=== PATIENT | female | born 1965 | race Caucasian/White ===

== ENCOUNTER 2016-07-02 08:28 | Inpatient (IN) | payer OTHER ==
--- NOTE | 2016-07-01 08:54 | HP ---
DATE OF CLINIC: 06/24/2016 BIBIANA OLVERA : 1965 PLANNED PROCEDURE: Left Total Knee Arthroplasty DATE OF SURGERY: July 02, 2016 SURGEON: Fam Weber M.D. HISTORY OF PRESENT ILLNESS Bibiana Olvera is a 51 year old female. * Medication list reviewed with patient allergy list reviewed with patient. * Tried NSAIDS Ibuprofen-prn * Tried Injections Aspiration/Injection 03/20/15 * Has not tried Physical Therapy 51-year-old female with known left knee osteoarthritis interested in pursuing TKA. When we last talked in October of 2015 I told her that she needed to get documentation of active substance abuse treatment as she is a previous methamphetamine user including as recently as in the last year. She also needed to have clearance from her PCP as well as evidence of attempts on smoking cessation. She returns today to discuss her progress. She states that she has made contact with substance abuse treatment counselors, but has not actually started any treatment yet. She has been working with her PCP, but does not have that clearance yet and she has cut back to smoking just a few cigarettes a day and is interested in trying the patch to get completely off of them. Her pain continues to be a 3-5/10, worse with activities, no real changes. No changes to her past medical or surgical history. After discussion and review of treatment options, both operative and non-operative, and clearances from her PCP, she has elected to proceed with left TKA and presents today preoperatively. CURRENT MEDICATION * Flexeril 10mg Tablet as directed 0 days, 0 refills * Gabapentin 300 MG Capsule as directed 0 days, 0 refills * Ibuprofen 800 MG Tablet as needed 0 days, 0 refills * Omeprazole 20 MG Capsule Delayed Release 1 once a day 0 days, 0 refills PAST MEDICAL/SURGICAL HISTORY Reported: Medical: Stomach problems, a fracture, Reported numbness, Reported tingling, cardiac history, history of Arthritis, Gout, Hypertension, Stroke, Osteoporosis, Vertigo, and Asthma. Surgical / Procedural: Prior surgery Ankle ORIF 09/01/13 Left Knee ACL reconstruction 02/06/14. SOCIAL HISTORY Social history unchanged. Behavioral: Current smoker - smokes 1/2 pack per day for the last 30 years having stopped a couple of times and smoking status: Current everyday smoker. Work: Occupation Customer Service. ALLERGIES * Codeine Reaction: Skin Rashes/Hives * Latex FAMILY HISTORY Father ill Cancer Mother ill Diabetes, blood cots, hypertension, depression, REVIEW OF SYSTEMS No recent constitutional symptoms to include fevers and chills. No recent cardiovascular symptoms to include chest pain or palpitations. No recent respiratory symptoms to include shortness of breath or recent infections. She specifically denies using any illegal substances anytime since the last time we talked. PHYSICAL FINDINGS * Vitals taken 06/24/2016 01:38 pm BP-Sitting R 141/84 mmHg BP Cuff Size Regular Pulse Rate-Sitting 92 bpm Pulse Rhythm Regular Temp-Oral 98.2 F Height 63 in Weight 170 lbs Body Mass Index 30.1 kg/m2 Body Surface Area 1.80 m2 Pain Level 3 Ears, Nose, Throat: * ENT: normal. Lungs: * Clear to auscultation. Cardiovascular: Heart Rate and Rhythm: * Normal. Abdomen: * Normal. Neurological: Motor: * Dominant Hand = Right Hand. Patient is a well-developed, well-nourished female in no acute distress. She is awake, alert and conversant throughout the encounter. She is somewhat agitated and almost has sort of flight of ideas in discussion to her speech. CARDIOVASCULAR: Intact peripheral pulses on bilateral lower extremities. No significant edema on inspection of bilateral lower extremities. NEUROLOGIC: Patient had intact coordinated composite motion of the bilateral lower extremities and sensation intact to light touch in all distributions of bilateral lower extremities. PSYCHIATRIC: Patient was oriented to person, place and time and displayed appropriate mood and affect during the encounter. SKIN: Exam of the skin on bilateral lower extremities showed no significant scars, lesions, rashes or masses. FOCUSED MUSCULOSKELETAL EXAM: No real changes, she's still got limited motion and pain and significant deformity in varus. She's got valgus pseudolaxity with a firm endpoint, stable to varus stress, grossly loose Karely's and negative posterior drawer. Her ROM is about 0-90 degrees. IMAGING Review of radiographs shows tunnel from previous ACL reconstruction, significant sclerotic appearance of the medial femoral condyle, midline patella, flattened and pitted medial femoral condyle, complete obliteration of the medial joint space, marginal osteophytosis and some varus malalignment with what appears to be a slight medial subluxation of the tibia relative to the femur. ASSESSMENT 51-year-old female with known left knee osteoarthritis with no real progress on the social and preoperative clearance front. PREVIOUS TESTS * Test: PROTHROMBIN TIME Report Date: 06/04/2016 PROTIME 10.2 s INR 0.97 * Test: PARTIAL THROMBOPLASTIN TIME Report Date: 06/04/2016 APTT 27.9 s * Test: CBC NO DIFF Report Date: 06/04/2016 WBC 6.7 10*3/mL MCV 97.5 fL RBC 4.77 10*6/uL MCH 32.5 pg High MCHC 33.3 g/dL RDW 12.1 % PLATELET COUNT 309 10*3/mL HCT 46.5 % HGB 15.5 g/L * Test: COMPREHENSIVE METABOLIC PANEL Report Date: 06/04/2016 ALT/SGPT 36 U/L ALBUMIN 4.0 g/dL ALB/GLOB RATIO 1.3 BUN 24 mg/dL BUN/CREAT RATIO 30 High CALCIUM 9.6 mg/dL GLUCOSE 80 mg/dL CREATININE 0.8 mg/dL SODIUM 136 meq/L POTASSIUM 4.7 meq/L CHLORIDE 99 meq/L CARBON DIOXIDE 32 meq/L High ANION GAP 10 meq/L TOT PROTEIN 7.2 g/dL GLOBULIN 3.2 g/dL BILI,TOTAL 0.4 mg/dL AST/SGOT 30 U/L ALK PHOSPHATASE 48 U/L GFR 76 * Test: MRSA SCREEN Report Date: 06/05/2016 MRSA SCREEN NEGATIVE * Test: MSSA SCREEN Report Date: 06/05/2016 MSSA SCREEN POSITIVE FOR STAPHYLOCOCCUS AUREUS Abnormal THERAPY * Patient not eligible for fall risk assessment. PLAN * Unilateral post-traumatic osteoarthritis, left knee Physical Therapy: [facility] Instructions: Left total knee rehab DOS: 07/02/16 Schedule the [facility] the [facility] 10 MG T12A, Take 1 tablet every 12 hours for baseline pain control, 10 days, 0 refills OxyCODONE HCl 5 MG TABS, Take 1-2 tablets by mouth every 4 hours as needed for severe breakthrough pain, 14 days, 0 refills TraMADol HCl 50 MG TABS, Take 1-2 tablets every 6 hours as needed for moderate breakthrough pain, 14 days, 0 refills * Total knee arthroplasty -Left CARE TEAM Rebeca Menon PA-C Physician Electronics Hardware Design Engineer SURGICAL CONSENT We have discussed surgical options including left TKA and non-operative management. The patient was counseled in detail regarding the diagnosis, treatment options available, prognosis of each treatment option and the potential risks and complications. The risks of surgery include, but are not limited to, anesthetic , neurovascular complications, pulmonary embolism, deep vein thrombosis, wound dehiscence, failure of any or all of the discussed procedures, infection of the joint or surrounding soft tissue, need for revision surgery, chronic pain, limitations in activities of daily living, inability to return to work, and loss of normal range of motion or functional use of the extremity. There is the possibility of failure over time that may require additional operative or non-operative treatment. The patient acknowledged that there are a number of perioperative risks not mentioned here and would still like to proceed. The patient is aware of and understands these risks, and wishes to proceed with the proposed surgical procedure and other procedures as indicated at the time of surgery. We will have the patient see their PCP for a preoperative medical risk assessment. The preoperative instructions were reviewed with the patient and all questions were answered. PB/sg
[2016-07-02] MEDS ORDERED: IV START KIT ONE (11:26)
[2016-07-02] MEDS ORDERED: LACTATED RINGERS 1,000 ML ONE (11:26)
[2016-07-02] MEDS ORDERED: CEFAZOLIN SODIUM 2 GRAM PREMIX 100 ML IV ONE (11:27)
[2016-07-02] MEDS ORDERED: FAMOTIDINE 20 MG TABLET PO ONE (11:30)
[2016-07-02] MEDS ORDERED: OXYCODONE HCL 10 MG TAB.SR PO ONE ×2 (11:30→12:32)
[2016-07-02] MEDS ORDERED: GABAPENTIN 600 MG TABLET PO ONE (11:30)
[2016-07-02] MEDS ORDERED: TRAMADOL HCL 50 MG TABLET PO ONE (11:30)
[2016-07-02] MEDS ORDERED: CEFAZOLIN SODIUM 2 GRAM PREMIX 100 ML IV PRN (11:30)
[2016-07-02] MEDS ORDERED: CLONIDINE HCL 0.1 MG/24 HR (7 DAY PATCH) TD SCH (11:30)
[2016-07-02] MEDS ORDERED: CELECOXIB 200 MG CAPSULE PO ONE (11:30)
[2016-07-02] MEDS ORDERED: ONDANSETRON 4 MG/2ML 2 ML VIAL IV ONE (11:30)
[2016-07-02] MEDS ORDERED: FAMOTIDINE 20 MG TABLET ONE (12:32)
[2016-07-02] MEDS ORDERED: GABAPENTIN 600 MG TABLET ONE (12:32)
[2016-07-02] MEDS ORDERED: TRAMADOL HCL 50 MG TABLET ONE (12:32)
[2016-07-02] MEDS ORDERED: ONDANSETRON 4 MG/2ML 2 ML VIAL ONE ×2 (12:32→14:46)
[2016-07-02] MEDS ORDERED: CLONIDINE HCL 0.1 MG/24 HR (7 DAY PATCH) TD ONE (12:32)
[2016-07-02] MEDS ORDERED: SPINAL PROCEDURAL TRAY 1 EACH ONE (12:33)
[2016-07-02] MEDS ORDERED: NERVE BLOCK PROCEDURAL TRAY 1 EACH ONE (12:33)
[2016-07-02] MEDS ORDERED: ROPIVACAINE 0.2% 20 ML VIAL ONE (12:33)
[2016-07-02] MEDS ORDERED: CELECOXIB 200 MG CAPSULE ONE (12:33)
[2016-07-02] MEDS ORDERED: MIDAZOLAM HCL 5 MG/5 ML VIAL ONE (12:34)
[2016-07-02] MEDS ORDERED: FENTANYL 100 MCG/2 ML VIAL ONE (12:34)
[2016-07-02] MEDS ORDERED: TRANEXAMIC ACID 1,000 MG in SODIUM CHLORIDE 0.9% 100 ML IV PRN (13:30)
[2016-07-02] MEDS ORDERED: BUPIVACAINE 0.25% (MDV) 20 ML in SODIUM CHLORIDE 0.9% FLUSH 20 ML IF PRN (13:30)
[2016-07-02] MEDS ORDERED: POLYMYXIN B SULFATE 500,000 UNITS, BACITRACIN 25,000 UNITS in SODIUM CHLORIDE 3 L IRRIG... IR PRN (13:30)
[2016-07-02] MEDS ORDERED: BUPIVACAINE 0.25% (MDV) 24 ML, MORPHINE SULFATE 8 MG, EPINEPHRINE 0.3 MG in SODIUM CHLO... IF PRN (13:30)
[2016-07-02] MEDS ORDERED: PROPOFOL 40 ML IV ONE (14:04)
[2016-07-02] MEDS ORDERED: KETAMINE HCL UD SYRINGE 100 MG/2 ML IV ONE (14:04)
[2016-07-02] MEDS ORDERED: FENTANYL 100 MCG/2 ML VIAL IV PRN (14:21)
[2016-07-02] MEDS ORDERED: NALOXONE HCL 0.4 MG/ML VIAL IV PRN (14:21)
[2016-07-02] MEDS ORDERED: ON-Q PUMP/ROPIVACAINE 0.2% 450 ML in PREMIX BAG 1 EACH NB PRN (14:21)
[2016-07-02] MEDS ORDERED: ONDANSETRON 4 MG/2ML 2 ML VIAL IV PRN ×2 (14:21→17:26)
[2016-07-02] MEDS ORDERED: ATROPINE SULFATE 0.4 MG/1 ML VIAL IV PRN (14:21)
[2016-07-02] MEDS ORDERED: PROMETHAZINE HCL 25 MG/ML VIAL IM PRN (14:21)
[2016-07-02] MEDS ORDERED: LACTATED RINGERS 1,000 ML IV SCH (14:30)
[2016-07-02] MEDS ORDERED: CEFAZOLIN SODIUM 1,000 MG VIAL ONE (14:47)
[2016-07-02] MEDS ORDERED: PROPOFOL 20 ML IV ONE ×3 (14:48→15:57)
[2016-07-02] MEDS ORDERED: ON-Q PUMP/ROPIVACAINE 0.2% 450 ML ONE (16:20)
--- NOTE | 2016-07-02 16:30 | PCMBPN ---
Brief Post Op Note: Date of Procedure: 07/02/16 Start Time: 1400 Preoperative Diagnosis: 1. left knee osteoarthritis Postoperative Diagnosis: 1. Same Procedure: left total knee arthroplasty Surgeon: Fam Weber MD Assist: Joesph Chow PA-C Anesthesia: Moses Jackson Findings: as above Condition: stable to PACU Complications: none IV Fluids: 1100 mLs of LR Urine Output: 350 mLs Estimated Blood Loss: 250 mLs Tourniquet Time: 44 min at 250 mm Hg Specimens: none Implants: DePuy Attune 4PS femur, 4RP tibia, 6mm insert, 32 mm anatomic patella Drains: none Fam Weber MD
[2016-07-02 16:49] LABS: URINE BILIRUBIN NEGATIVE (NEGATIVE); URINE BLOOD NEGATIVE (NEGATIVE); URINE GLUCOSE (UA) NEGATIVE (NEGATIVE); URINE LEUKOCYTE ESTERASE NEGATIVE (NEGATIVE); URINE NITRITE NEGATIVE (NEGATIVE); URINE PROTEIN NEGATIVE (NEGATIVE); URINE UROBILINOGEN NORMAL (0-1 mg/dl)
[2016-07-02 16:52] LABS: URINE APPEARANCE CLEAR; URINE COLOR LIGHT YELLOW
--- NOTE | 2016-07-02 16:59 | RAD ---
KNEE LEFT 1 OR 2 VIEWS HISTORY: Postop left knee surgery. COMPARISONS: 03/07/2015. FINDINGS: 2 views of the left knee and demonstrate an interval left knee arthroplasty with tibial and femoral components. There is no pericomponent fracture identified. Cement along the medial aspect of the tibial component appears to be within the prior tunnel from suspected anterior cruciate ligament repair. The knee joint spaces are well-maintained. There are falguni within the anterior soft tissues. IMPRESSION: 1. Interval total left knee arthroplasty with no pericomponent fracture identified.
[2016-07-02] MEDS ORDERED: HYDRALAZINE HCL 20 MG/1 ML VIAL ONE (17:07)
[2016-07-02] MEDS ORDERED: HYDRALAZINE HCL 20 MG/1 ML VIAL IV PRN (17:08)
[2016-07-02] MEDS ORDERED: TRAZODONE HCL 50 MG TABLET PO PRN (17:26)
[2016-07-02] MEDS ORDERED: HYDROMORPHONE HCL 0.5 MG/0.5 ML SYRINGE IV PRN (17:26)
[2016-07-02] MEDS ORDERED: KETOROLAC TROMETHAMINE 30 MG/ML 1 ML VIAL IV PRN (17:26)
[2016-07-02] MEDS ORDERED: CALCIUM CARBONATE 500 MG TAB.CHEW PO PRN (17:26)
[2016-07-02] MEDS ORDERED: PUMP TUBING ONE (21:46)
[2016-07-02] MEDS: GABAPENTIN 300 MG CAPSULE PO SCH (21:51)
[2016-07-02] MEDS: CEFAZOLIN SODIUM 2 GRAM DUPLEX 2 G in Premix (D5W) 50 ml 1 EACH IV SCH (21:51)
[2016-07-02] MEDS: D5 1/2NS with 20 mEq KCL 1,000 ML IV SCH (21:51)
[2016-07-02] MEDS: ASCORBIC ACID 500 MG TABLET PO SCH (21:52)
[2016-07-02] MEDS: DOCUSATE SODIUM 100 MG CAPSULE PO SCH (21:52)
[2016-07-02] MEDS: OXYCODONE HCL 10 MG TAB.SR PO SCH (21:52)
[2016-07-02] MEDS: ACETAMINOPHEN 500 MG TABLET PO SCH (21:52)
[2016-07-02 22:24] VITALS: BMI 29.5
[2016-07-03] MEDS: ACETAMINOPHEN 500 MG TABLET PO SCH ×4 (02:11→20:46)
[2016-07-03] MEDS: OXYCODONE HCL 5 MG TABLET PO PRN ×3 (05:05→12:48)
[2016-07-03] MEDS ORDERED: IV START KIT ONE ×2 (05:15→05:36)
[2016-07-03] MEDS ORDERED: SODIUM CHLORIDE 0.9% FLUSH 10 ML ONE ×2 (05:15→05:36)
[2016-07-03] MEDS: D5 1/2NS with 20 mEq KCL 1,000 ML IV SCH ×3 (05:49→17:14)
[2016-07-03] MEDS: CEFAZOLIN SODIUM 2 GRAM DUPLEX 2 G in Premix (D5W) 50 ml 1 EACH IV SCH (05:53)
[2016-07-03 06:52] LABS: HEMOGLOBIN 11.7 gm/l (12.0-16.0); MEAN CELL VOLUME 100.6 fl (81.0-99.0); MEAN CORPUSCULAR HEMOGLOBIN 32.7 pg (27.0-31.0); MEAN CORPUSCULAR HGB CONC 32.5 g/dl (33.0-37.0); RED CELL DISTRIBUTION WIDTH 12.1 % (11.5-14.5)
[2016-07-03 07:13] LABS: CALCIUM 8.1 mg/dL (8.6-10.3)
--- NOTE | 2016-07-03 07:56 | PDOC43 ---
- Subjective Findings: POD1 after Left TKA. Subjective: Reports Pain Tolerable, Denies Chest Pain, Denies Shortness of Breath - Objective Vital Signs Temperature 97.9 F 07/03/16 04:00 Pulse Rate 84 07/03/16 04:00 Respiratory Rate 20 07/03/16 04:00 Blood Pressure 122/64 07/03/16 04:00 O2 Saturation by Pulse Oximetry 98 07/03/16 04:00 Oxygen Delivery Method Nasal Cannula Oxygen Flow Rate 2 Laboratory 07/03/16 06:30 07/03/16 06:30 07/03/16 06:30 RBC 3.58 L MCV 100.6 H MCH 32.7 H MCHC 32.5 L Anion Gap 6 L Calcium 8.1 L Active Medication Orders Category Date Time Status Acetaminophen [Tylenol] Med 07/02/16 17:26 Active 1,000 mg PO Q6H Ascorbic Acid [Vitamin C] Med 07/02/16 21:00 Active 500 mg PO BID Aspirin (Enteric Coated) [Ecotrin] Med 07/03/16 09:00 Active 325 mg PO DAILY Bisacodyl [Dulcolax] Med 07/05/16 16:24 Active 10 mg [place] DAILY PRN Calcium Carbonate [Tums] Med 07/02/16 17:26 Active 1,000 - 2,000 mg PO Q2H PRN D5 1/2NS with 20 mEq KCL [D51/2NS with 20 mEq KCL] 1, Med 07/02/16 17:26 Active 000 ml IV 125 mls/hr Docusate Sodium [Colace] Med 07/02/16 21:00 Active 100 mg PO BID Gabapentin [Neurontin] Med 07/02/16 21:00 Active 300 mg PO TID Hydralazine HCl [Apresoline] Med 07/02/16 17:08 Active 5 mg IV Q10M PRN Hydromorphone HCl [Dilaudid] Med 07/02/16 17:26 Active 0.5 mg IV Q1H PRN Hydroxyzine Pamoate [Vistaril] Med 07/02/16 17:26 Active 25 - 50 mg PO Q4H PRN Ketorolac Tromethamine [Toradol] Med 07/02/16 17:26 Active 30 mg IV Q6H PRN Lisinopril [Prinivil] Med 07/03/16 09:00 Active 20 mg PO DAILY Magnesium Hydroxide [Milk of Magnesia] Med 07/03/16 16:24 Active 30 ml PO DAILY PRN Multivitamins [One-A-Day] Med 07/03/16 09:00 Active 1 tab PO DAILY Ondansetron 4 mg/2ml Vial [Zofran] Med 07/02/16 17:26 Active 4 - 6 mg IV Q6H PRN Oxycodone HCl [Roxicodone] Med 07/02/16 17:26 Active 5 - 10 mg PO Q4H PRN Oxycodone Sr [Oxycontin] Med 07/02/16 21:00 Active 10 mg PO Q12HR Pantoprazole Sodium [Protonix] Med 07/03/16 09:00 Active 40 mg PO DAILY Remove Patch Med 07/03/16 16:24 Once 1 each TD X1 ONE Sodium Chloride 0.9% Flush [Normal Saline 10ml Flush] Med 07/02/16 17:26 Active 10 - 50 ml IV PRN PRN Sodium Chloride 0.9% Flush [Normal Saline 10ml Flush] Med 07/03/16 01:00 Active 10 ml IV Q8HR Trazodone HCl [Desyrel] Med 07/02/16 17:26 Active 25 mg PO BEDTIME PRN Intake and Output 07/01/16 07/02/16 07/03/16 23:59 23:59 23:59 Intake Total 1300 1506 Output Total 850 1550 Balance 450 -44 General: Afebrile Lungs: Normal Air Movement Skin: Normal Color, Warm, Dry - Left Lower Extremity Incision: Dressing Clean/Dry/Intact Motor: Extensor Hallucis Longus: 5/5, Tibialis Anterior: 5/5, Gastrocnemius: 4/5 , Peroneals: 4/5 Gross Sensation to Light Touch: Present: Deep Peroneal Nerve, Superficial Peroneal Nerve - Problems (1) Status post total left knee replacement Status: Acute - Additional Comments POD1 Left TKA. 1. Physical Therapy: WBAT with FWW, Mobilize, Nothing to be placed behind knee. 2. Pain Control: Multimodal pain control as needed. 3. DVT Prophylaxis: ASA 325mg daily, Mobilization 4. Disposition: Plan for Discharge home Thursday. 5. Medical Issues: No new medical problems.
[2016-07-03] MEDS: LISINOPRIL 20 MG TABLET PO SCH (08:40)
[2016-07-03] MEDS: ASPIRIN (ENTERIC COATED) 325 MG TABLET.EC PO SCH (08:41)
[2016-07-03] MEDS: DOCUSATE SODIUM 100 MG CAPSULE PO SCH ×2 (08:41→20:46)
[2016-07-03] MEDS: MULTIVITAMINS 1 TAB TABLET PO SCH (08:41)
[2016-07-03] MEDS: ASCORBIC ACID 500 MG TABLET PO SCH ×2 (08:41→20:46)
[2016-07-03] MEDS: PANTOPRAZOLE 40 MG TABLET DR PO SCH (08:41)
[2016-07-03] MEDS: GABAPENTIN 300 MG CAPSULE PO SCH ×3 (08:41→20:46)
[2016-07-03] MEDS: OXYCODONE HCL 10 MG TAB.SR PO SCH ×2 (08:41→20:46)
[2016-07-03] MEDS ORDERED: OMEPRAZOLE 20 MG CAPSULE.DR PO SCH (09:00)
[2016-07-03] MEDS: NICOTINE 21 MG PATCH 1 EACH TD SCH (09:25)
[2016-07-03] MEDS ORDERED: REMOVE PATCH 1 EACH UNIT TD SCH (11:30)
[2016-07-03] MEDS ORDERED: REMOVE PATCH 1 EACH UNIT TD ONE (16:24)
[2016-07-03] MEDS ORDERED: MAGNESIUM HYDROXIDE 30 ML UDCUP PO PRN (16:24)
[2016-07-04] MEDS: OXYCODONE HCL 5 MG TABLET PO PRN ×4 (01:16→15:00)
[2016-07-04] MEDS: HYDROXYZINE PAMOATE 25 MG CAPSULE PO PRN ×2 (01:17→06:21)
[2016-07-04] MEDS: ACETAMINOPHEN 500 MG TABLET PO SCH ×3 (01:17→14:01)
[2016-07-04 06:20] LABS: HEMATOCRIT 34.6 % (37.0-47.0); HEMOGLOBIN 11.5 gm/l (12.0-16.0)
[2016-07-04] MEDS: NICOTINE 21 MG PATCH 1 EACH TD SCH ×2 (06:35→09:30)
[2016-07-04] MEDS: LISINOPRIL 20 MG TABLET PO SCH ×2 (07:26→09:30)
[2016-07-04] MEDS ORDERED: LORAZEPAM 2 MG/ML 1ML SDV IV ONE (08:37)
[2016-07-04] MEDS ORDERED: LORAZEPAM 2 MG/ML 1ML SDV ONE (08:41)
[2016-07-04] MEDS: PANTOPRAZOLE 40 MG TABLET DR PO SCH (08:45)
[2016-07-04] MEDS: ASPIRIN (ENTERIC COATED) 325 MG TABLET.EC PO SCH (08:45)
[2016-07-04] MEDS: MULTIVITAMINS 1 TAB TABLET PO SCH (08:45)
[2016-07-04] MEDS: GABAPENTIN 300 MG CAPSULE PO SCH ×3 (08:45→14:48)
[2016-07-04] MEDS: ASCORBIC ACID 500 MG TABLET PO SCH (08:45)
[2016-07-04] MEDS: DOCUSATE SODIUM 100 MG CAPSULE PO SCH (08:45)
[2016-07-04] MEDS: OXYCODONE HCL 10 MG TAB.SR PO SCH (08:45)
--- NOTE | 2016-07-04 08:45 | PDOC43 ---
- Subjective Findings: Had pain last night, now doing better. No complaints, no chest pain, no shortness of breath. Eager to go home. Subjective: Reports Flatus, Reports Pain Tolerable, Denies Chest Pain, Denies Shortness of Breath, Denies Nausea, Denies Vomiting, Denies Fever - Objective Vital Signs Temperature 98.8 F 07/04/16 07:25 Pulse Rate 92 07/04/16 07:26 Respiratory Rate 18 07/04/16 07:25 Blood Pressure 162/117 07/04/16 07:26 O2 Saturation by Pulse Oximetry 98 07/04/16 07:25 Oxygen Delivery Method Room Air Oxygen Flow Rate 0 Laboratory 07/04/16 05:30 07/03/16 06:30 Active Medication Orders Category Date Time Status Acetaminophen [Tylenol] Med 07/02/16 17:26 Active 1,000 mg PO Q6H Amlodipine Besylate [Norvasc] Med 07/04/16 09:00 Active 2.5 mg PO QAM Ascorbic Acid [Vitamin C] Med 07/02/16 21:00 Active 500 mg PO BID Aspirin (Enteric Coated) [Ecotrin] Med 07/03/16 09:00 Active 325 mg PO DAILY Bisacodyl [Dulcolax] Med 07/05/16 16:24 Active 10 mg [place] DAILY PRN Calcium Carbonate [Tums] Med 07/02/16 17:26 Active 1,000 - 2,000 mg PO Q2H PRN Docusate Sodium [Colace] Med 07/02/16 21:00 Active 100 mg PO BID Gabapentin [Neurontin] Med 07/02/16 21:00 Active 300 mg PO TID Hydralazine HCl [Apresoline] Med 07/02/16 17:08 Active 5 mg IV Q10M PRN Hydromorphone HCl [Dilaudid] Med 07/02/16 17:26 Active 0.5 mg IV Q1H PRN Hydroxyzine Pamoate [Vistaril] Med 07/02/16 17:26 Active 25 - 50 mg PO Q4H PRN Lisinopril [Prinivil] Med 07/03/16 09:00 Active 20 mg PO DAILY Lorazepam [Ativan] Med 07/04/16 08:37 Once 1 mg IV X1 ONE Magnesium Hydroxide [Milk of Magnesia] Med 07/03/16 16:24 Active 30 ml PO DAILY PRN Multivitamins [One-A-Day] Med 07/03/16 09:00 Active 1 tab PO DAILY Nicotine 21 mg Patch [Nicoderm Cq] Med 07/03/16 09:15 Active 1 each TD Q24H Ondansetron 4 mg/2ml Vial [Zofran] Med 07/02/16 17:26 Active 4 - 6 mg IV Q6H PRN Oxycodone HCl [Roxicodone] Med 07/02/16 17:26 Active 5 - 10 mg PO Q4H PRN Oxycodone Sr [Oxycontin] Med 07/02/16 21:00 Active 10 mg PO Q12HR Pantoprazole Sodium [Protonix] Med 07/03/16 09:00 Active 40 mg PO DAILY Sodium Chloride 0.9% Flush [Normal Saline 10ml Flush] Med 07/02/16 17:26 Active 10 - 50 ml IV PRN PRN Sodium Chloride 0.9% Flush [Normal Saline 10ml Flush] Med 07/03/16 01:00 Active 10 ml IV Q8HR Trazodone HCl [Desyrel] Med 07/02/16 17:26 Active 25 mg PO BEDTIME PRN Intake and Output 07/02/16 07/03/16 07/04/16 23:59 23:59 23:59 Intake Total 1300 2705 850 Output Total 850 2050 950 Balance 450 655 -100 General: Afebrile, No Acute Distress HEENT: EOMI Lungs: Normal Air Movement Abdomen: Soft Skin: Normal Color, Warm, Dry Neurological: Grossly Intact, Alert, Oriented x 4 - Left Lower Extremity Incision: Dressing Clean/Dry/Intact, Well Approximated, [place] Intact, No Drainage, No Erythema, No Rash, No Ecchymosis Motor: Extensor Hallucis Longus: 5/5, Tibialis Anterior: 5/5, Gastrocnemius: 5/5 , Peroneals: 5/5, Quadriceps: 4/5 Gross Sensation to Light Touch: Present: Deep Peroneal Nerve, Superficial Peroneal Nerve, Medial Plantar Nerve, Lateral Plantar Nerve, Sural Nerve, Saphenous Nerve Capillary Refill: < 3 Seconds - Problems (1) Status post total left knee replacement Status: AcuteAssessment/Plan: POD#2 L TKA 1. Physical Therapy: doing well, continue per protocol 2. Pain Control: multimodal, adequate 3. DVT Prophylaxis: ASA 325 mg daily, mobilization 4. Disposition: likely home today 5. Medical Issues: elevated BP this AM, discussed with hospitalist, gave single dose of Amlodipine and 1 mg Lorazepam, checking EKG and troponin. If no significant changes, likely discharge home today. Fam Weber MD - Additional Comments POD1 Left TKA. 1. Physical Therapy: WBAT with FWW, Mobilize, Nothing to be placed behind knee. 2. Pain Control: Multimodal pain control as needed. 3. DVT Prophylaxis: ASA 325mg daily, Mobilization 4. Disposition: Plan for Discharge home Thursday. 5. Medical Issues: No new medical problems.
[2016-07-04] MEDS ORDERED: AMLODIPINE BESYLATE 5 MG TABLET PO SCH (09:00)
[2016-07-04 09:53] LABS: SPECIFIC GRAVITY 1.015 (1.001-1.030); URINE BILIRUBIN NEGATIVE (NEGATIVE); URINE BLOOD 4+ (NEGATIVE); URINE GLUCOSE (UA) NEGATIVE (NEGATIVE); URINE LEUKOCYTE ESTERASE TRACE (NEGATIVE); URINE NITRITE NEGATIVE (NEGATIVE); URINE PROTEIN TRACE (NEGATIVE); URINE UROBILINOGEN NORMAL (0-1 mg/dl)
[2016-07-04 09:54] LABS: URINE APPEARANCE HAZY; URINE COLOR YELLOW
[2016-07-04 10:19] LABS: URINE BACTERIA 1+; URINE RBC 20-30 /hpf
[2016-07-04] MEDS ORDERED: HYDROCHLOROTHIAZIDE 25 MG TABLET PO ONE (10:43)
[2016-07-04] MEDS ORDERED: METOPROLOL TARTRATE 25 MG TABLET PO SCH (10:45)
[2016-07-04 11:07] VITALS: BP 185/112
--- NOTE | 2016-07-04 12:39 | PDOC5 ---
ADMIT DATE: 07/02/16 DISCHARGE DATE: 07/04/16 ADMISSION DIAGNOSES: left knee osteoarthritis PROCEDURES PERFORMED THIS HOSPITALIZATION: left total knee arthroplasty SURGEON:Fam Weber MD CONSULTATIONS: PT/OT/Care Mgmt/Hospitalist BRIEF HISTORY:This is a 51 year old female patient with activity-limiting left knee osteoarthritis which has failed to respond adequately to a course of nonoperative measures. After a discussion of the risks, benefits, and alternatives of ongoing therapies, patient elected to proceed with left total knee arthroplasty. The patient underwent standard preoperative clearance and education, and presented to the hospital on the scheduled date for surgery. BRIEF HOSPITAL COURSE: Patient tolerated the procedure without complication and was admitted postoperatively for observation, pain control, and rehabilitation. Patient had an uncomplicated hospital course; see daily notes for details. On POD#2 patient met all criteria for discharge and was discharged home with family assistance. Follow-up appointments for outpatient Physical Therapy and Orthopedics were provided at the time of discharge. Patient restarted preoperative medications, and received prescriptions for postoperative pain medications, a stool softener, and DVT prophylaxis. Fam Weber MD - Discharge Diagnosis (1) Status post total left knee replacement Status: Acute - Discharge Plan Additional Instructions: PROCEDURE: Left total knee arthroplasty (replacement) 1.) Dressings: may remove dressings on POD#4 and shower normally, let water run over incision and pat dry, but do not submerge or scrub incision. Cover with clean dressing and then change dressing every 2 days until completely dry. 2.) Activity: may bear weight as tolerated with assistive device as needed. Outpatient PT as previously scheduled. Daily exercises as instructed by PT. 3.) Medications: a.) Oxycontin: long-acting pain medication taken morning and evening for 10 days, no refills b.) Tramadol: as-needed pain medication for mild to moderate breakthrough pain (call for refills 3-4 days before running out) c.) Oxycodone: as-needed pain medication for severe breakthrough pain (call for refills 3-4 days before running out) d.) Aspirin: blood thinner to reduce risk of clots, 325 mg taken daily for 30 days e.) Colace: stool softener to help prevent constipation, taken twice a day as long as you are on narcotics; if you have not had a bowel movement by Thursday , get [id number] Magnesium Citrate from [facility] or [facility], and use per instructions twice a day until constipation resolves. 4.) Followup: July 15 at 1:00 PM with my PA, Joesph Chow at [facility]. Call our office to confirm appt time and location. 5.) Questions: call my office with any questions or concerns- [phone]. Go to ED or call 911 for any acute changes in health status or emergencies. Fam Weber MD Follow-Up: [facility] [place] [Other] - 07/07/16 1:30 pm Andriy Chow PA [Physician [employer] Mill Lab Technician] - 07/15/16 1:00 pm
[2016-07-05] MEDS ORDERED: HYDROCHLOROTHIAZIDE 25 MG TABLET PO SCH (09:00)
[2016-07-05] MEDS ORDERED: LISINOPRIL 20 MG TABLET PO SCH (09:00)
[2016-07-05] MEDS ORDERED: BISACODYL 10 MG SUP PR PRN (16:24)
--- NOTE | 2016-07-06 11:48 | CONS ---
BIBIANA AVILA [id number] ADMIT DATE: 07/02/2016 DATE OF CONSULTATION: 07/04/2016 REASON FOR CONSULTATION: Hypertension in the postoperative period. HISTORY: Bibiana is a 51-year-old female who on 07/02/2016 underwent a left total knee arthroplasty by Dr. Weber. She had minimal medical problems and really did well in the immediate postoperative period. She was having routine postoperative care. On the morning of 07/04/2016, they actually were planning on discharge, when they noticed that her blood pressure was a bit on the high side with a reading of 160/110. She was completely asymptomatic with this. Dr. Weber requested a Hospitalist consult prior to discharge. REVIEW OF SYSTEMS: She has no headache, no visual symptoms and no difficulty swallowing. No chest pain, no shortness of breath, no heart palpitations. No nausea, vomiting or diarrhea. She has good pain control on her left knee surgical site. She has been working well with physical therapy, and occupational therapy. PAST MEDICAL HISTORY: 1. Hypertension. She is normally on lisinopril/hydrochlorothiazide. I note that she has only been receiving lisinopril in the postoperative period. 2. Chronic obstructive pulmonary disease. 3. Depression and anxiety. 4. Hepatitis C. 5. History of meth and marijuana use, last use was within the last month. PAST SURGICAL HISTORY: 1. Ankle open reduction and internal fixation 09/01/2013. 2. Left knee anterior cervical lymphadenopathy 02/06/2014. ALLERGIES: CODEINE AND LASIX. HOME MEDICATIONS: 1. Lisinopril/hydrochlorothiazide 20/25 (this was mistakenly ordered as simply lisinopril up until now). 2. Omeprazole 20 mg by mouth every day. 3. Neurontin 300 mg by mouth three times a day. 4. Ibuprofen as needed. SOCIAL HISTORY: No alcohol use. She does regularly use meth and marijuana most recently within the last month prior to the surgery. Continues to smoke about a half a pack a day. LABORATORY DATA: Laboratory performed this morning: Hemoglobin and hematocrit of 11 and 34. Chemistry panel: Troponin of 0.01. Lab work from yesterday with a hemoglobin and hematocrit of 11 and 36. Chemistry panel: Sodium is 138, potassium 4.1, chloride 105, carbon dioxide of 31, BUN of 13, creatinine 0.8, and glucose 102. DIAGNOSTIC IMAGING: Preoperative electrocardiogram normal sinus rhythm, no acute ST or T-wave abnormalities. ASSESSMENT: 1. Postoperative day two status post left total knee arthroplasty doing well. Routine postoperative care as per orthopedics. Aspirin for deep venous thrombosis prophylaxis per orthopedics protocol. 2. Hypertension, chronic essential hypertension. This appears to be at her baseline. She has not been getting her usual hydrochlorothiazide in addition to her usual lisinopril. I think at this point she is safe to be discharged on her normal lisinopril/hydrochlorothiazide, in addition to a low dose metoprolol which I have ordered 12.5 twice a day. I recommend follow up with her primary care physician within the next 1 to 2 weeks. 3. Polydrug abuse at baseline complicating all of the above. KH/iban Cc: Fam Weber MD
--- NOTE | 2016-07-07 12:55 | OP ---
Bibiana AVILA : 1965 [id number] DATE OF SURGERY: July 02, 2016 PREOPERATIVE DIAGNOSIS: Left knee osteoarthritis. POSTOPERATIVE DIAGNOSIS: Left knee osteoarthritis. PROCEDURE PERFORMED: LEFT TOTAL KNEE ARTHROPLASTY. SURGEON: Fam Weber M.D. [facility] AMBASSADOR: Andriy Chow P.A.-C. SPECIMENS: No material was sent to the laboratory. ESTIMATED BLOOD LOSS: 250 mL. INTRAVENOUS FLUIDS: 1100 mL of crystalloid. URINE OUTPUT: 350 mL. TOURNIQUET TIME: 44 minutes at 300 mmHg. IMPLANTS: DePuy Attune size 4 posterior stabilized femur, size 4 rotating platform tibia, a 6 mm insert and a 32 mm anatomic patella. DRAINS: No drains. INDICATIONS: This is a 51-year-old female with history and physical exam and radiographic findings consistent with left knee osteoarthritis. The patient has undergone a course of nonoperative measures without adequate relief of their symptoms. They desire definitive management in the form of a total knee arthroplasty. Risks, benefits and alternatives were discussed at length with the patient and they have elected to proceed. Preoperative clearances were performed and the patient was scheduled for surgery at the first available convenience. DESCRIPTION OF PROCEDURE: The patient was identified in the preoperative holding area where they were marked with indelible marker by the operating surgeon. The patient underwent ultrasound guided adductor canal block by the anesthesia provider. Patient was then taken to the operating room where they underwent a spinal anesthetic and was positioned supine on the operating room table. All bony prominences were padded and a well padded pre-calibrated nonsterile tourniquet was placed on the left upper thigh. Patient received perioperative antibiotics. The patient was prepped and draped in the usual sterile fashion for surgery. An operative time out was performed and confirmed by all members of the operative team. The leg was elevated and exsanguinated using an Esmarch bandage and the tourniquet was inflated at 300 mmHg. A standard anterior approach to the knee was utilized. Dissection was carried down to the fascia overlying the quadriceps and patellar tendons. A medial peripatellar arthrotomy was created. The infrapatellar and suprapatellar fat pads were excised along with medial and lateral menisci and the ACL and PCL. At this point the tourniquet was deflated. Retractors were placed to protect the collateral ligaments and the patella was slid laterally. The TruMatch guide for the femur was brought onto the field and pinned in place. This was exchanged for our distal femoral cut block. We confirmed our resection levels and then made the resection with an oscillating saw. The knee was hyperflexed and the Tarlow retractor was placed to deliver the tibia from under the femur. The TruMatch guide for the tibia was placed. Alignment was double checked with a set of drop rods. The guide was pinned in place and then exchanged for the proximal tibial cut guide. The resection level was again confirmed and the proximal tibial resection was made with an oscillating saw and completed with an osteotome and the proximal tibial resection piece was excised from the knee. At this point the retractors were removed and the knee was taken into extension and our extension block was checked and found to be satisfactory with a 6 mm hue. We returned our attention to the femur, pinning the 4-in-[address] using the previously drilled pins from the TruMatch guide. We double checked our alignment here as well as our flexion space and we were satisfied with the position of the block. Anterior, posterior and chamfer cuts were made and all bony pieces were excised. The knee was taken into hyperflexion and posterior osteophytes were removed using an osteotome and a curette. Finally, the tibia was sized with a base plate, drilled and punched and then a trial tibia was placed. The box cut guide for the femur was pinned in place and our box cut for the posterior stabilized femoral component was made and then a trial femur was placed. The trial 6 mm insert was placed and the knee was taken through a range of motion. It was found to be stable in all planes and to have appropriate extension and flexion. The patella was everted and held with two towel clips. Its thickness was measured to 23 mm initially. It was resected back using a freehand technique to 14 mm thick and sized for a 32 mm patellar button. The peg holes were drilled and a trial patella was placed. The knee was taken through a range of motion. The patella was found to track midline with a no hands technique. At this point all trial implants were removed from the knee. The posterior capsule was inspected and it was confirmed that there were no significant bleeders. Then knee was elevated and exsanguinated using an Esmarch bandage and the tourniquet was reinflated. Cement was mixed on the back table while we performed our first posterior capsular injection and then copiously irrigated the bony surfaces with sterile saline. Our final implants were cemented in place and all excess cement was removed from the knee. The knee was held in extension with a clamp on the patella while the cement dried. A final inspection was made of the knee after the cement was dry and the tourniquet was deflated. There were no significant bleeders and no residual cement or bony bodies within the knee. The knee was once again copiously irrigated with sterile saline and then a closure was performed using #0 Quill for the capsule, #2-0 Vicryl for the subcutaneous tissues and falguni in the skin. A sterile dressing of Xeroform, fluffs, ABD's, web roll and an KRISTY bandage was applied. The drapes were removed. The patient was awakened from anesthesia. Patient was then transferred to a stretcher and taken postoperatively to the post anesthesia care unit in stable condition. There were no observed intraoperative complications during this procedure. Job [id number] Cc: Dex Martinez
== END 2016-07-04 15:15 | disposition home or self-care (01) | DRG 470 ==
LOC: OR 11:14 → MS 18:10
PROVIDERS: ADMIT Orthopaedic Surgery; ATTEND Orthopaedic Surgery
PROC: 0SRD0J9 Replacement of Left Knee Joint with Synthetic Substitute, Cemented, Open Approach (ICD-10-PCS; principal; 2016-07-02)
DX: M17.32 Unilateral post-traumatic osteoarthritis, left knee (principal); I10 Essential (primary) hypertension; J44.9 Chronic obstructive pulmonary disease, unspecified; F15.10 Other stimulant abuse, uncomplicated; F12.10 Cannabis abuse, uncomplicated; B19.20 Unspecified viral hepatitis C without hepatic coma; F41.8 Other specified anxiety disorders; M81.0 Age-related osteoporosis without current pathological fracture; Z72.0 Tobacco use; Z86.73 Personal history of transient ischemic attack (TIA), and cerebral infarction without residual deficits; Z88.5 Allergy status to narcotic agent; Z91.040 Latex allergy status